=== PATIENT | male | born 1965 | race Caucasian/White ===

== ENCOUNTER 2016-12-02 06:32 | Observation (INO) ==
[2016-12-02 07:07] LABS: MANUAL DIFF NEEDED? NO
[2016-12-02 07:11] LABS: BASO% 0.2 % (0.0-0.8); EOS# 0.47 X1000 (0.0-0.7); EOS% 4.2 % (0.0-10.0); HEMOGLOBIN 15.8 g/dL (14.0-18.0); IMM GRAN# 0.03 X1000 (0.0-0.04); IMM GRAN% 0.3 % (0.0-0.5); LYMPH# 2.77 X1000 (1.2-3.4); LYMPH% 24.9 % (20.5-51.1); MCH 31.9 PG (27-31); MCHC 35.1 g/dL (33-37); MCV 90.9 FL (81-99); MONO# 0.87 X1000 (0.11-0.59); MONO% 7.8 % (1.7-9.3); NEUT% 62.6 % (42.2-75.2); PLT 138 X1000 (130-400); RBC 4.95 XMIL (4.7-6.1)
--- NOTE | 2016-12-02 07:22 | Diag Imaging Result Doc PS360 ---
EXAM: CHEST-2 VIEWS HISTORY: CP TECHNIQUE: COMPARISON: None. FINDINGS: The lungs are well expanded. The heart is not enlarged. The vessels are not distended. There are no infiltrates. No pleural effusions. Mild scoliosis. I believe there is a small granuloma in the right apex. IMPRESSION: No acute abnormality. Electronically signed by Freedom Dudley 12/02/2016 7:20 AM
[2016-12-02 07:26] LABS: INR 0.96; PROTIME 10.1 Seconds (9.2-11.7); PTT 21.1 Seconds (22.0-36.0)
--- NOTE | 2016-12-02 07:46 | PROVIDER DOCUMENTATION ---
HPI-Chest Pain - General Chief Complaint: Chest Pain Stated Complaint: cp Time Seen by Provider: 12/02/16 06:46 Source: patient Allergies/Adverse Reactions: Patient Allergies Allergy/AdvReac Type Severity Reaction Status Date / Time Penicillins Allergy Unknown Verified 12/02/16 07:00 prochlorperazine Allergy Unknown Verified 12/02/16 07:00 [From Compazine] Home Medications: Home Medication List Medication Instructions Recorded Confirmed Last Taken Type Aripiprazole [Abilify] 2 mg PO DAILY 12/02/16 12/02/16 12/01/16 History Aspirin [Aspir-Low] 81 mg PO DAILY 12/02/16 12/02/16 12/01/16 History Bupropion HCl [Wellbutrin Sr] 200 mg PO BID 12/02/16 12/02/16 12/01/16 History Diazepam 2 mg PO BID 12/02/16 12/02/16 12/01/16 History Ezetimibe [Zetia] 10 mg PO QHS 12/02/16 12/02/16 12/01/16 History Gabapentin 600 mg PO QHS 12/02/16 12/02/16 12/01/16 History Lisinopril 10 mg PO DAILY 12/02/16 12/02/16 12/01/16 History Melatonin/Pyridoxine HCl (B6) 1 each PO QHS 12/02/16 12/02/16 12/01/16 History [Melatonin 5 mg Tablet] Metoprolol [Lopressor] 50 mg PO DAILY 12/02/16 12/02/16 12/01/16 History ROSUVAstatin [Crestor] 20 mg PO QHS 12/02/16 12/02/16 12/01/16 History Risperidone 1 mg PO QHS 12/02/16 12/02/16 12/01/16 History - History of Present Illness-CP Nature of Presenting Problem: Reports woke up with L anterior chest pain at 6AM this morning. The pain radiated to L jaw area. Boutte SOB and chest tightness. Pt took 4 baby ASA at home and called 911, and then he was provided Nitro by EMS. Pt reports his pain last about 20 min and eased off. H/o cardiac stent X2 back to 10 years ago due to Cocaine abuse. No cocaine abuse since 7 years ago. Pt had a normal stress test X [address] Robles. Location: reports: other (See above) Chest Pain Radiation: reports: jaw Quality of Pain: reports: aching, pressure Severity in ED: moderate Onset/Duration: 1-3 hours ago Timing: improving, gone now Context/Activities at Onset: reports: none Modifying Factors: improves with: other medication Associated Symptoms: reports: shortness of breath. denies: abdominal pain, diaphoresis, dizziness, fatigue, fever/chills, headache, heartburn, nausea, vomiting, weakness Nitro Today/Relief: provided by EMS Aspirin Treatment Today: provided at home Prior Chest Pain/Cardiac Workup: reports: cardiac cath Similar Symptoms Previously?: No Recently Seen Here or By Another Healthcare Provider: No Review of Systems - Adult - REVIEW OF SYSTEMS - ADULT Constitutional: reports: no symptoms reported Eyes: reports: no symptoms reported Ears, Nose, Mouth & Throat: reports: no symptoms reported Cardiovascular: reports: see HPI, chest pain Respiratory: reports: no symptoms reported, shortness of breath. denies: chronic cough, cough, pleurisy, wheezing Gastrointestinal: reports: no symptoms reported Genitourinary: reports: no symptoms reported Musculoskeletal: reports: no symptoms reported Integumentary: reports: no symptoms reported Neurological: reports: no symptoms reported Psychiatric: reports: no symptoms reported Endocrine: reports: no symptoms reported Hematologic/Lymphatic: reports: no symptoms reported Allergic/Immunologic: reports: no symptoms reported All Other Systems: Reviewed and Negative Past History - Adult - PAST MEDICAL HISTORY-ADULT Review of Records: reports: Old Records Reviewed, Nursing Assessment Review, Medications Reviewed Physical Exam-General - PHYSICAL EXAM-ADULT Initial Vital Signs Reviewed: Yes - CONSTITUTIONAL General Appearance: appears well, alert, no apparent distress - EYES Eyes: PERRL/EOMI, pink conjunctivae - HEAD, EARS, NOSE, MOUTH & THROAT HENMT: normocephalic/atraumatic, moist mucous membranes, normal ENT inspection, TMs normal, pharynx normal - NECK Neck: non-tender, full range of motion, supple - RESPIRATORY Respiratory: chest non-tender, lungs clear, normal breath sounds, no pleuratic chest pain, no respiratory distress - CARDIOVASCULAR Cardiovascular: normal peripheral pulses, regular rate, rhythm, no edema, no gallop, no JVD, no murmur - GASTROINTESTINAL (ABDOMEN) Abdominal Exam: normal bowel sounds, non tender, soft, no organomegaly, no pulsatile mass, abdominal bruit. negative: guarding, rigid, rebound, tenderness - MUSCULOSKELETAL Back Exam: normal inspection, no CVA tenderness, no vertebral tenderness Extremity: normal range of motion, non-tender, normal gait - SKIN Integumentary: normal color, normal turgor, warm/dry - NEUROLOGIC Neurologic: no motor/sensory deficits - PSYCHIATRIC Psych/Mental Status: normal mood/affect, normal thought content, normal thought process, oriented x 3 Progress - PLAN OF CARE/RESULTS Progress/Plan/Lab Results: Vital Signs - 8 hr 12/02/16 06:56 12/02/16 08:12 12/02/16 08:15 Temperature Pulse Rate 69 64 64 Respiratory Rate 15 23 20 Blood Pressure 122/77 115/70 115/70 O2 Sat by Pulse Oximetry 95 94 L 95 12/02/16 08:48 12/02/16 09:08 12/02/16 09:34 Temperature 97.8 F Pulse Rate 63 71 Respiratory Rate 15 22 Blood Pressure 118/78 121/80 O2 Sat by Pulse Oximetry 96 96 12/02/16 10:26 12/02/16 11:43 Temperature Pulse Rate 65 65 Respiratory Rate 19 17 Blood Pressure 104/73 125/88 O2 Sat by Pulse Oximetry 96 93 L Laboratory Results - last 24 hr 12/02/16 12/02/16 12/02/16 06:45 06:45 06:45 WBC 11.13 H RBC 4.95 Hgb 15.8 Hct 45.0 MCV 90.9 MCH 31.9 H MCHC 35.1 RDW Std Deviation 12.9 Plt Count 138 MPV 11.0 H Immature Gran % (Auto) 0.3 Neut % (Auto) 62.6 Lymph % (Auto) 24.9 Dixie % (Auto) 7.8 Eos % (Auto) 4.2 Baso % (Auto) 0.2 Immature Gran # (Auto) 0.03 Neut # (Auto) 6.97 H Lymph # (Auto) 2.77 Dixie # (Auto) 0.87 H Eos # (Auto) 0.47 Baso # (Auto) 0.02 PT 10.1 INR 0.96 PTT (Actin FS) 21.1 L D-Dimer 0.35 Sodium Potassium Chloride Carbon Dioxide Anion Gap BUN Creatinine Estimated GFR/1.73 m2 BUN/Creatinine Ratio Glucose Calculated Osmolality Calcium Magnesium Total Bilirubin AST ALT Alkaline Phosphatase Creatine Kinase Troponin T Wnk-N-Xcanbnkztni Pept Total Protein Albumin Globulin Albumin/Globulin Ratio 12/02/16 12/02/16 12/02/16 07:32 07:32 07:32 WBC RBC Hgb Hct MCV MCH MCHC RDW Std Deviation Plt Count MPV Immature Gran % (Auto) Neut % (Auto) Lymph % (Auto) Dixie % (Auto) Eos % (Auto) Baso % (Auto) Immature Gran # (Auto) Neut # (Auto) Lymph # (Auto) Dixie # (Auto) Eos # (Auto) Baso # (Auto) PT INR PTT (Actin FS) D-Dimer Sodium 139 Potassium 4.3 Chloride 102 Carbon Dioxide 24 L Anion Gap 13 BUN 15 Creatinine 0.9 Estimated GFR/1.73 m2 > 60 BUN/Creatinine Ratio 17 Glucose 127 H Calculated Osmolality 280 Calcium 10.3 H Magnesium 1.9 Total Bilirubin 0.41 AST 16 ALT 22 Alkaline Phosphatase 76 Creatine Kinase 87 Troponin T < 0.010 Xkg-R-Suljmaqsdyx Pept 6 Total Protein 7.4 Albumin 4.2 Globulin 3.2 Albumin/Globulin Ratio 1.3 12/02/16 12/02/16 12/02/16 09:25 09:25 11:44 WBC RBC Hgb Hct MCV MCH MCHC RDW Std Deviation Plt Count MPV Immature Gran % (Auto) Neut % (Auto) Lymph % (Auto) Dixie % (Auto) Eos % (Auto) Baso % (Auto) Immature Gran # (Auto) Neut # (Auto) Lymph # (Auto) Dixie # (Auto) Eos # (Auto) Baso # (Auto) PT INR PTT (Actin FS) D-Dimer Sodium Potassium Chloride Carbon Dioxide Anion Gap BUN Creatinine Estimated GFR/1.73 m2 BUN/Creatinine Ratio Glucose Calculated Osmolality Calcium Magnesium Total Bilirubin AST ALT Alkaline Phosphatase Creatine Kinase 100 172 Troponin T 0.014 Jsx-Y-Mmeggsgbjem Pept Total Protein Albumin Globulin Albumin/Globulin Ratio 12/02/16 11:44 WBC RBC Hgb Hct MCV MCH MCHC RDW Std Deviation Plt Count MPV Immature Gran % (Auto) Neut % (Auto) Lymph % (Auto) Dixie % (Auto) Eos % (Auto) Baso % (Auto) Immature Gran # (Auto) Neut # (Auto) Lymph # (Auto) Dixie # (Auto) Eos # (Auto) Baso # (Auto) PT INR PTT (Actin FS) D-Dimer Sodium Potassium Chloride Carbon Dioxide Anion Gap BUN Creatinine Estimated GFR/1.73 m2 BUN/Creatinine Ratio Glucose Calculated Osmolality Calcium Magnesium Total Bilirubin AST ALT Alkaline Phosphatase Creatine Kinase Troponin T 0.054 D Tnm-A-Iokvfvzicsi Pept Total Protein Albumin Globulin Albumin/Globulin Ratio Orders Category Date Time Status Cardiac Monitoring DIRECTED Care 12/02/16 06:34 Active Saline Loc NOW Care 12/02/16 06:34 Active CHEST-2 VIEWS [RAD] Stat Exams 12/02/16 06:34 Completed CBC WITH ELECTRONIC DIFF [HEME] Stat Lab 12/02/16 06:45 Completed CK PROFILE [SP CHEM] Stat Lab 12/02/16 07:32 Completed CK PROFILE [SP CHEM] Stat Lab 12/02/16 09:25 Completed CK PROFILE [SP CHEM] Stat Lab 12/02/16 11:44 Completed COMPREHENSIVE METABOLIC PANEL [CHEM] Stat Lab 12/02/16 07:32 Completed D-DIMER [CHEM] Stat Lab 12/02/16 06:45 Completed MAGNESIUM [CHEM] Stat Lab 12/02/16 07:32 Completed PRO B-NATRIURETIC PEPTIDE Stat Lab 12/02/16 07:32 Completed PROTIME WITH INR [COAG] Stat Lab 12/02/16 06:45 Completed PTT [COAG] Stat Lab 12/02/16 06:45 Completed TROPONIN T Stat Lab 12/02/16 07:32 Completed TROPONIN T Stat Lab 12/02/16 09:25 Completed TROPONIN T Stat Lab 12/02/16 11:44 Completed EKG [EKG] Stat Ther 12/02/16 06:34 Ordered Result Diagrams: 12/02/16 06:45 12/02/16 07:32 - REASSESSMENT Reassessment #1 Time Reassessed: 10:54 Status: improving (Pt reports that she has been pain free since ED arrival and he refused to be admitted and wants to go home. Will do the 3rd round Cardiac enzymes.) - EKG 1 EKG Interpretation (*Must complete 3 of following elements*): Normal Rate: 71 Rhythm: NSR [place]: normal QRS: normal AR Interval: normal ST Wave: normal - XRAY 1 XRAY Study: Chest Impression: Normal - CONSULTS/PCP/HOSPITALIST Notification #1 *Consult/PCP/Hospitalist*: Edis/hospitalist Time Discussed: 12:53 Consult Disposition: Will see in ED, Admit Departure - Departure Date of Disposition Decision: 12/02/16 Time of Disposition Decision: 12:52 DIAGNOSIS: Chest pain Disposition: ADMITTED INPATIENT 09 Certified Medical Emergency: Emergent Condition: Stable Referrals and Follow-Ups: None,PCP [Primary Care Provider] - - Critical Care Note This patient required my direct & personal management of CC.: No
[2016-12-02 08:25] LABS: AGAP 13; ALBUMIN 4.2 g/dL (3.5-5.0); ALKALINE PHOSPHATASE 76 U/L (32-122); BUN 15 mg/dL (8-22); CALCIUM 10.3 mg/dL (8.8-10.2); CHLORIDE 102 mmol/L (98-107); CK PROFILE 87 U/L (24-204); COSMO 280; GOT 16 U/L (10-34); GPT 22 U/L (10-44); MAGNESIUM 1.9 mg/dL (1.5-2.7); POTASSIUM 4.3 mmol/L (3.5-5.1); SODIUM 139 mmol/L (136-145); TCO2 24 mmol/L (25-35); TOTAL BILIRUBIN 0.41 mg/dL (0.20-1.00); TOTAL PROTEIN 7.4 g/dL (6.3-8.3)
[2016-12-02] MEDS ORDERED: ZOFRAN IV PRN ×2 (13:25→14:23)
--- NOTE | 2016-12-02 14:10 | HISTORY AND PHYSICAL ---
States that he was woke up this morning with pain. It was pressure. Radiating to both jaws. No radiation into his arm, but pretty intense discomfort and he would have components of sharper pain as well. Apparently he has a history of coronary artery disease and has had some stents placed by his report. Followed by Dr. Robles. He has a history of bipolar illness and subtotal thyroidectomy. He has had his tonsils taken out. He has had a right inguinal hernia repair. I see where had a myocardial perfusion scan in June at the time of chest pain. Negative exercise stress electrocardiogram. Left ventricular ejection fraction 72%. In the myocardial imaging, revealed no evidence of ischemia. SOCIAL HISTORY: He is still smoking. He does not drink much alcohol. Used to use cocaine, but it has been 7 years ago by his report. FAMILY HISTORY: He did not volunteer any pertinent information. REVIEW OF SYSTEMS: He does not report any weight gain or loss. No fever or chills.HEENT: Unremarkable. Respiratory: No increased work of breathing or dyspnea. Cardiovascular: As noted above. Some chest pressure. Has not had this before. Did get relief with nitroglycerin. The pain did radiate into both jaws and pretty intense pain in the jaws. Gastrointestinal: Does not report any symptoms. Genitourinary: Does not report any symptoms. Musculoskeletal/Neurologic: No focal complaints. He does have a history of bipolar. His chest x-ray showed no acute abnormality. CPK was 87. Troponin was less than 0.01 on first set. Troponin came up to 0.054 on second set. Electrocardiogram unremarkable. PHYSICAL EXAMINATION: GENERAL: Well developed, well nourished white male, pleasant. VITAL SIGNS: Temperature 97.8 degrees, pulse 71, respirations 20, blood pressure 134/89. HEENT: Pupils were equal. CVP less than 6 cm. LUNGS: Clear in all lung ferris. CARDIOVASCULAR: Regular rhythm and rate without murmur or S3. ABDOMEN: Soft. SKIN: Warm and dry. No chest wall tenderness reproduced. No pedal edema. LAB: Reviewed his lab work. White count 11,130, hematocrit 45, platelet count 138,000. Sodium 139, potassium 4.3, chloride 102, bicarb 24, BUN 15, creatinine 0.9, blood sugar 127. Osmolality was 280, magnesium 1.9. ASSESSMENT AND PLAN: 1. Atypical chest pain. Concerned about a small bump in the troponin. EKG unremarkable, but component of it very suggestive of unstable angina. Probably need to put him on some Lovenox. We will of course give him an aspirin and start some low-dose beta margi. Continue his other medications. 2. History of hypercholesterolemia. Continue Crestor. Check lipid profile in the morning. 3. Hypertension. Continue present medication lisinopril. 4. History of bipolar. He is on Risperidone 1 mg p.o. at bedtime. He is already on Lopressor 50 mg p.o. daily. He is on Wellbutrin 200 mg b.i.d., diazepam 2 mg b.i.d., and Abilify 2 mg daily. cc: Xavier Curry MD
[2016-12-02] MEDS ORDERED: DUONEB (A & A) INH PRN ×2 (14:23→15:49)
[2016-12-02] MEDS ORDERED: DUONEB (A & A) INH SCH (15:30)
[2016-12-02] MEDS: NICODERM PATCH TD SCH (16:33)
[2016-12-02] MEDS: LOVENOX SUBQ SCH (16:34)
[2016-12-02] MEDS ORDERED: ZETIA PO SCH (21:00)
[2016-12-02] MEDS ORDERED: MELATONIN PO SCH (21:00)
[2016-12-02] MEDS ORDERED: NEURONTIN PO SCH (21:00)
[2016-12-02] MEDS ORDERED: RISPERDAL PO SCH (21:00)
[2016-12-02] MEDS ORDERED: CRESTOR PO SCH (21:00)
[2016-12-02] MEDS: WELLBUTRIN SR PO SCH (21:42)
[2016-12-02] MEDS: VALIUM PO SCH (21:43)
[2016-12-02 22:39] LABS: URINE CULTURE NEEDED? NO; URINE MICRO REVIEW NEEDED? NO; URINE SOURCE CLEAN CATCH
[2016-12-02 22:44] LABS: BILIRUBIN URINE NEGATIVE (NEGATIVE); BLOOD URINE NEGATIVE (NEGATIVE); COLOR YELLOW; GLUCOSE URINE NEGATIVE (NEGATIVE); LEUKOCYTES URINE NEGATIVE (NEGATIVE); NITRITE URINE NEGATIVE (NEGATIVE); PH URINE 6.5; PROTEIN URINE NEGATIVE (NEGATIVE); TURBIDITY URINE CLEAR (CLEAR); UROBILINOGEN URINE NORMAL (NORMAL)
[2016-12-02 22:45] LABS: UR EPITHELIAL CELLS <10 /HPF (<10); URINE BACTERIA NEGATIVE /HPF; URINE RBC <10 /HPF (<10); URINE WBC <10 /HPF (<10)
[2016-12-02 23:13] LABS: UR AMPHETAMINES QUAL NONE DETECTED (NONE DETECT); UR BARBITUATES QUAL NONE DETECTED (NONE DETECT); UR BENZODIAZEPIN QUAL PRESUMPTIVE POSITIVE (NONE DETECT); UR CANNABINOIDS QUAL PRESUMPTIVE POSITIVE (NONE DETECT); UR COCAINE QUAL NONE DETECTED (NONE DETECT); UR METHADONE QUAL NONE DETECTED (NONE DETECT); UR OPIATES QUAL NONE DETECTED (NONE DETECT); UR OXYCODONE QUAL NONE DETECTED (NONE DETECT); UR PCP QUAL NONE DETECTED (NONE DETECT)
[2016-12-03] MEDS: LOVENOX SUBQ SCH (02:05)
[2016-12-03 06:30] LABS: HEMOGLOBIN 15.5 g/dL (14.0-18.0); MCH 32.4 PG (27-31); MCHC 35.2 g/dL (33-37); MCV 92.1 FL (81-99); MPV 9.5 FL (7.4-10.4); RBC 4.78 XMIL (4.7-6.1)
--- NOTE | 2016-12-03 06:38 | EKG Report ---
Test Performed on : 12/03/2016 05:50:38 AM Test Reason : Non ST AR Blood Pressure : / mmHG Vent. Rate : 074 BPM Atrial Rate : 074 BPM P-R Int : 144 ms QRS Dur : 100 ms QT Int : 412 ms P-R-T Axes : 050 052 066 degrees QTc Int : 457 ms Normal sinus rhythm. Nonspecific ST abnormality Abnormal ECG When compared with ECG of 02-DEC-2016 06:37, (Unconfirmed) No significant change was found Confirmed by Jessy Thomason MD ([id number]) on 12/04/2016 12:26:32 PM
[2016-12-03 07:03] LABS: AGAP 14; BUN 18 mg/dL (8-22); CALCIUM 9.1 mg/dL (8.8-10.2); CHLORIDE 101 mmol/L (98-107); COSMO 279; HDL 30 mg/dL (35-55); LDL 88 mg/dL; SODIUM 138 mmol/L (136-145); TCO2 23 mmol/L (25-35); TRIGLYCERIDES 233 mg/dL (39-160); VLDL 47 mg/dL
--- NOTE | 2016-12-03 07:09 | EKG Report ---
Test Performed on : 12/02/2016 06:37:06 AM Test Reason : Chest Pain Blood Pressure : / mmHG Vent. Rate : 071 BPM Atrial Rate : 071 BPM P-R Int : 150 ms QRS Dur : 098 ms QT Int : 416 ms P-R-T Axes : 055 061 073 degrees QTc Int : 452 ms Normal sinus rhythm. Normal ECG No previous ECGs available Unconfirmed Result
[2016-12-03 07:44] LABS: CK INDEX 9.5 (0.0-2.5); CK-MB 53.7 ng/mL (0.0-5.0)
[2016-12-03] MEDS ORDERED: HEPARIN 1000 UNITS/NS 2,000 UNIT/1,000 ML IV.SOLN ONE (08:05)
[2016-12-03] MEDS ORDERED: NITROGLYCERIN ONE (08:21)
[2016-12-03] MEDS ORDERED: ASPIRIN EC PO SCH (09:00)
[2016-12-03] MEDS ORDERED: ABILIFY PO SCH (09:00)
[2016-12-03] MEDS ORDERED: LOPRESSOR PO SCH (09:00)
[2016-12-03] MEDS ORDERED: PRINIVIL PO SCH (09:00)
[2016-12-03] MEDS ORDERED: CRESTOR PO SCH (10:56)
--- NOTE | 2016-12-03 10:59 | CONSULTATION ---
DATE OF CONSULTATION: 12/02/2016 REQUESTING PHYSICIAN: Hospitalist Service REASON FOR CONSULTATION: Chest pain, coronary heart disease. HISTORY OF PRESENT ILLNESS: Mr. Greenberg is a 51-year-old male who presented to the emergency room this morning at about 6:30 with complaints of waking up from his sleep with significant chest pain, very intense, radiated to the jaw. He waited about 15 to 20 minutes and after that, he decided to call for help. He was brought to the emergency room department. They did an initial EKG that showed no acute ischemic changes. That was done at 6:37 in the morning. Subsequent EKG done at 3:57 p.m. shows no acute changes. Troponin levels initially were negative, then subsequently 0.014, 0.054 and then 0.141 at 2:29 p.m. His CK was initially 87, subsequently 100, 172, and the one at 2:29 p.m. is 337. This is consistent with acute coronary syndrome. This is a djp-[id number]-vxxcnqmyg myocardial infarction. The patient at the time of my visit, which is 4:15 p.m., is chest pain free. The patient says that he has never experienced any chest pain like this. PAST MEDICAL HISTORY: Positive for severe coronary heart disease. Initially his disease was found on stress testing. Reportedly in 09/2006, he underwent a stent to the circumflex and subsequently in 09/2007, he underwent a bare metal stent to proximal right coronary artery which is chronically occluded after an acute marginal branch which is large, per Dr. Guevara's report. He also did angioplasty without a stent to the ostium and proximal portion of the diagonal branch of the LAD. The patient at that time was not having chest pain. His stress test was abnormal. The last stress test taken by this patient was in 06/2015 that showed a low grade, small size fixed defect in the basal inferior wall. Ejection fraction was normal at that time. Echocardiogram at that time was also unremarkable. The patient has history of hypertension, hyperlipidemia, bipolar disorder. He also has history of sleep apnea syndrome. PAST SURGICAL HISTORY: He has had thyroid surgery, hernia repair, tonsillectomy. SOCIAL HISTORY: He is single. 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 He has no children. He smokes 3/4 pack of cigarettes a day for a long time. FAMILY HISTORY: His father is alive at age 71 and has severe coronary heart disease and previous bypass. He has one sister who is in good health. Mother is . HOME MEDICATIONS: At the time of this admission are listed as aspirin 81 mg daily, Crestor 20 mg at bedtime, Zetia 10 mg at bedtime, lisinopril 10 mg daily, diazepam 2 mg twice a day, risperidone 1 mg at bedtime, Lopressor 50 mg daily, gabapentin 600 mg at bedtime, bupropion 200 twice a day, aripiprazole (Abilify) 2 mg daily, melatonin 5 mg at bedtime. ALLERGIES: He is allergic to penicillin and Compazine. REVIEW OF SYSTEMS: He is active. He does not exercise on a regular basis; however, he is always on the run doing things for his different properties. He has no exertional angina, no palpitations, no edema, no claudication. No active respiratory symptoms. No abdominal complaints. No active additional metabolic issues, diabetes or thyroid disorder. No active musculoskeletal complaints. No skin disorder. No neurological issues. No hearing or visual problems. There is a remote history of drug abuse in the past. Reportedly he has not used drugs in many years. PHYSICAL EXAMINATION: Blood pressure is 134/89, temperature 97.8, pulse 64, respirations 20. He is awake, alert and oriented, in no distress. HEENT is normal. Throat is normal. No masses in the neck. No bruits. No thyromegaly. Chest is clear to auscultation and percussion. Heart sounds are regular and rhythmic. No gallop or murmur. His abdomen is nontender, soft. No masses. No hepatomegaly. Extremities show good pulses, no peripheral edema. Neurologic: Follows commands, moves all 4 extremities. Skin shows no rash. DIAGNOSTIC DATA: A 12-lead EKG is normal. Chest x-ray is normal. His additional blood work shows white count 11,130, hemoglobin 15.8. PT and PTT are normal. D-dimer is normal. BUN and creatinine are normal. IMPRESSION: 1. The patient is presenting with sudden onset of chest pain waking him up from his sleep. He does have elevation of troponin and CPK level suggesting that we are dealing with a non-ST- elevation myocardial infarction. 2. History of severe coronary artery disease. Previous diagnosis of total occlusion of right coronary artery and severe stenosis of the diagonal as well as circumflex with previous intervention to all those vessels. 3. History of hypertension. 4. History of hyperlipidemia. 5. History of bipolar disorder. RECOMMENDATIONS: At this point in time, I agree with your management including enoxaparin, aspirin, beta blockers, nicotine patch and statins. We will arrange for a coronary arteriogram. The benefits, risks and complications are discussed with the patient. We will trend his enzymes. Further advice will be forthcoming. cc: Sam Alfred MD
[2016-12-03] MEDS ORDERED: VERSED ONE ×2 (11:01→11:30)
[2016-12-03] MEDS ORDERED: DEMEROL ONE (11:02)
[2016-12-03] MEDS ORDERED: NS 1,000 ML ONE (11:02)
[2016-12-03] MEDS ORDERED: ANESTHESIA PB SET 88 IN 5742 ONE (11:02)
[2016-12-03] MEDS ORDERED: CLAVE TWINSITE 32 IN 11959 ONE (11:05)
[2016-12-03 12:22] VITALS: BP 136/82
[2016-12-03] MEDS ORDERED: NS 1,000 ML IV SCH (13:00)
--- NOTE | 2016-12-03 13:36 | EKG Report ---
Test Performed on : 12/03/2016 1:17:12 PM Test Reason : post cath Blood Pressure : / mmHG Vent. Rate : 072 BPM Atrial Rate : 072 BPM P-R Int : 160 ms QRS Dur : 102 ms QT Int : 422 ms P-R-T Axes : 068 057 070 degrees QTc Int : 462 ms Normal sinus rhythm. Normal ECG When compared with ECG of 03-DEC-2016 05:50, (Unconfirmed) No significant change was found Confirmed by Jessy Thomason MD ([id number]) on 12/04/2016 12:27:22 PM
[2016-12-03] MEDS: VALIUM PO SCH (13:58)
[2016-12-03] MEDS: NICODERM PATCH TD SCH (13:59)
[2016-12-03] MEDS: WELLBUTRIN SR PO SCH (14:03)
--- NOTE | 2016-12-03 14:55 | CARDIAC CATH REPORT ---
DATE: 12/03/2016 PROCEDURES PERFORMED: 1. Left heart catheterization. 2. Selective coronary arteriography. 3. Left ventriculography. 4. Opacification of right femoral artery with deployment of 6-Canadian Angio-Seal device. HISTORY OF PRESENT ILLNESS: Mr. Greenberg is a 51-year-old male smoker, history of hypertension, with a history of previous stent to the circumflex and a previous intervention to a diagonal branch of the LAD and the right coronary artery, who presented to the emergency room department on 12/02/2016 after waking up from his sleep with significant chest discomfort. The patient's initial EKG was unremarkable. Initial cardiac enzymes were negative; however, subsequently he developed a rise in his CPKs and troponins consistent with a non-Q-wave myocardial infarction. EKG persisted unchanged during the early hours, and his chest pain subsided. Because of the clear indication that he had suffered a non-Q-wave myocardial infarction and his history of severe coronary artery disease, we recommended a left heart catheterization to define his coronary anatomy and pursue revascularization as mandated by the anatomy. Benefits, risks and complications were discussed with him in detail. He understood and requested to proceed. DESCRIPTION OF PROCEDURE: The patient came into the cardiac label remover. He received 3 doses of Versed 1 mg and 2 doses of Demerol 25 mg for sedation. Right groin was prepped and draped in a sterile fashion and anesthetized with lidocaine 1%. A 6-Canadian sheath was inserted in the right femoral artery by following the modified Seldinger technique. Using a 6-Canadian left Francisco 4 and right Francisco 4, the left and right coronary arteries were opacified. Using the right Francisco catheter, the aortic valve was negotiated. Left ventricular pressure was determined. Left ventriculogram was performed in 60 degree DOMINICAN projection by hand injection. Thereafter, we switched over to a 6-Canadian pigtail catheter. The aortic valve was negotiated again, and left ventriculogram was performed in the 30 degree CERRATO projection by injecting 38 mL of Omnipaque at 11 mL per second. Good opacification of left ventricular chamber was accomplished. At the end of the procedure, the pigtail catheter was removed. The sheath was flushed. Right femoral artery was opacified, and Angio-Seal device was deployed successfully. The patient tolerated the procedure well without any obvious complication. SUMMARY OF HEMODYNAMIC FINDINGS: Central aortic pressure was 124/74, left ventricular pressure 120/5, post LV gram 131/5. Final central aortic pressure 120/67. SUMMARY OF ANGIOGRAPHIC FINDINGS: 1. Left main coronary artery: This vessel appears to be anatomically normal, free of any obstruction, arising from the usual left coronary sinus of Valsalva, divides into LAD and circumflex. 2. Left descending coronary artery: This vessel appears to be anatomically normal in its proximal segment. It gives rise to a prominent diagonal branch which shows a relatively long 60% to 70% stenosis before it branches out into 2 smaller terminal branches. There is a more proximal tiny diagonal branch. The LAD thereafter shows an intramyocardial bridge that spans a good portion of the mid LAD. The apical LAD is smaller, and the caliber appears to be 1.6 mm. It reaches the apex of the left ventricle. 3. Circumflex coronary artery: The circumflex coronary artery is a nondominant vessel. Proximally it gives rise to a sinus swati branch, and after giving rise to a lateral branch which appears to be patent, the circumflex becomes completely occluded. There is a segment that has been previously stented that is completely occluded. Beyond the stent, there is a terminal marginal system that is visualized consisting of 2 branches. The most proximal one is a bifurcating vessel with a caliber that may be about 1.5 mm. The most terminal branch is a little bit smaller, is visualized through ipsicollaterals. 4. Right coronary artery: The right coronary artery is a dominant vessel. Proximally it shows a stent that was deployed there and is patent. The right coronary artery gives rise to a conus branch, right atrial branch and gives rise to an acute marginal branch before becoming completely occluded. This vessel had been stented a few years ago, and no significant restenosis appears to be present. The right coronary artery beyond that is completely occluded. There is an ipsicollateral that feeds a smaller acute marginal branch that appears to arise from the mid segment of this right coronary artery. The terminal branches, which are the posterior descending and the posterolateral branch, are well collateralized through mature collaterals coming from the left system. LEFT VENTRICULOGRAM: Left ventriculogram in the 30 degree CERRATO projection and 60 degree DOMINICAN projection reveal that the left ventricular chamber is not dilated. There is actually very good contractility except for a focal area of the mid inferior wall which is significantly impaired. No mitral regurgitation was noted. The right femoral artery is patent, and Angio-Seal device was deployed successfully. CONCLUSIONS: 1. Severe coronary artery disease. There is complete occlusion of the proximal to mid circumflex. There is complete occlusion of the proximal to mid right coronary artery. There is a significant stenosis of the major diagonal branch of the LAD. There is also an intramyocardial bridge involving the mid LAD. 2. Well preserved left ventricular systolic function. Ejection fraction is 55% to 60%. 3. Normal LVEDP. 4. No aortic stenosis. No mitral regurgitation. 5. Unremarkable right femoral artery with deployment of 6-Canadian Angio-Seal device. RECOMMENDATIONS: We will treat this patient medically for the time being. We will obtain second opinion consultation from sales floor associate in [place] and also from the Cardiovascular Surgical Team. Further advice will be forthcoming. cc: Sam Alfred MD MTDD
--- NOTE | 2016-12-03 18:27 | DISCHARGE SUMMARY ---
ADMISSION DATE: 12/02/2016 DISCHARGE DATE: 12/03/2016 HISTORY AND HOSPITAL COURSE: The patient was admitted on 12/02/2016 yesterday for chest pain, squeezing, pressure-type pain with radiation to his jaw. Underwent heart catheterization this morning per Dr. Alfred. Result showed severe coronary artery disease. There is complete occlusion of the proximal to mid circumflex. There is complete occlusion of the proximal to mid right coronary artery. There is significant stenosis of the major diagonal branch of the LAD. There is also intramyocardial bridging involving the mid LAD. Well preserved left ventricular systolic function. Ejection fraction 55% to 60%. Normal LVEDP no aortic stenosis. He will be transferred to [place]. He will continue his current medications. He has a history of severe coronary artery disease, previously diagnosed with total occlusion of the right coronary artery and severe stenosis of the diagonal as well as circumflex and previous intervention on these vessels. DISCHARGE MEDICATIONS: We did have him on Lovenox and continued his other medications. cc: Xavier Curry MD
--- NOTE | 2016-12-04 08:06 | EKG Report ---
Test Performed on : 12/02/2016 3:57:08 PM Test Reason : ROUTINE Blood Pressure : / mmHG Vent. Rate : 062 BPM Atrial Rate : 062 BPM P-R Int : 156 ms QRS Dur : 102 ms QT Int : 426 ms P-R-T Axes : 046 055 055 degrees QTc Int : 432 ms Normal sinus rhythm. Normal ECG No previous ECGs available Unconfirmed Result
== END 2016-12-03 14:52 | disposition short-term general hospital (02) ==
LOC: 3N 06:32 → ED 06:32 → 3S 12-03 11:26
PROVIDERS: ATTEND Emergency Medicine

== ENCOUNTER 2018-11-21 20:14 | Observation (INO) ==
[2018-11-21] MEDS ORDERED: ASPIRIN PR ONE (20:29)
[2018-11-21] MEDS ORDERED: ASPIRIN PO ONE (20:29)
[2018-11-21 21:23] LABS: INR 0.91
[2018-11-21] MEDS ORDERED: NITROGLYCERIN TOP ONE (21:23)
--- NOTE | 2018-11-21 21:23 | Diag Imaging Result Doc PS360 ---
EXAM: CHEST-2 VIEWS 11/21/2018 HISTORY: chest pain TECHNIQUE: PA and lateral chest COMMENT: There are sternotomy wires. The heart size and pulmonary vascularity are within normal limits. There is apparent COPD. There is what appears to be a granuloma in the right upper lobe which has not changed since 12/02/2016. IMPRESSION: COPD. Electronically signed by Navjot Evans 11/21/2018 9:21 PM
[2018-11-21 21:26] LABS: BASO# 0.02 X1000 (0.0-0.2); BASO% 0.2 % (0.0-0.8); EOS# 0.15 X1000 (0.0-0.7); EOS% 1.8 % (0.0-10.0); HEMATOCRIT 40.9 % (42.0-52.0); HEMOGLOBIN 14.7 g/dL (14.0-18.0); LYMPH# 2.63 X1000 (1.2-3.4); LYMPH% 32.3 % (20.5-51.1); MCH 31.6 PG (27-31); MCHC 35.9 g/dL (33-37); MONO# 0.66 X1000 (0.11-0.59); MONO% 8.1 % (1.7-9.3); MPV 9.8 FL (7.4-10.4); NEUT# 4.67 X1000 (1.4-6.5); NEUT% 57.6 % (42.2-75.2); PLT 204 X1000 (130-400); RBC 4.65 XMIL (4.7-6.1); RDW 12.3 % (11.5-14.5); WBC 8.13 X1000 (4.8-10.8)
[2018-11-21 21:34] LABS: AGAP 12; ALB/GLOB RATIO 2.1; ALBUMIN 4.8 g/dL (3.5-5.0); ALKALINE PHOSPHATASE 67 U/L (32-122); BUN 16 mg/dL (8-22); CALCIUM 9.8 mg/dL (8.8-10.2); CHLORIDE 102 mmol/L (98-107); CK PROFILE 101 U/L (24-204); COSMO 281; CREATININE 1.2 mg/dL (0.7-1.2); ESTIMATED GFR > 60; GLUCOSE 134 mg/dL (70-104); GOT 20 U/L (10-34); GPT 26 U/L (10-44); POTASSIUM 4.1 mmol/L (3.5-5.1); SODIUM 139 mmol/L (136-145); TCO2 25 mmol/L (25-35); TOTAL BILIRUBIN 0.45 mg/dL (0.20-1.00); TOTAL PROTEIN 7.1 g/dL (6.3-8.3)
--- NOTE | 2018-11-21 23:16 | PROVIDER DOCUMENTATION ---
This chart was entered by Mervat Osuna Scribe, acting as scribe for Jonn Canada MD. HPI-Chest Pain - General Chief Complaint: Chest Pain Stated Complaint: CHEST PAIN/HISTORY OF HERAT PROBLEMS Time Seen by Provider: 11/21/18 20:44 Source: patient Allergies/Adverse Reactions: Patient Allergies Allergy/AdvReac Type Severity Reaction Status Date / Time fluoxetine [From Prozac] Allergy abd pain, Verified 03/29/17 11:44 migraine hernandez Penicillins Allergy Unknown Verified 03/29/17 11:44 prochlorperazine Allergy Unknown Verified 03/29/17 11:44 [From Compazine] Home Medications: Home Medication List Medication Instructions Recorded Confirmed Last Taken Type Aripiprazole [Abilify] 2 mg PO DAILY 12/02/16 03/29/17 12/01/16 History Aspirin [Aspir-Low] 325 mg PO DAILY 12/02/16 03/29/17 12/01/16 History Bupropion HCl [Wellbutrin Sr] 200 mg PO BID 12/02/16 03/29/17 12/01/16 History Diazepam 2 mg PO BID 12/02/16 03/29/17 12/01/16 History Ezetimibe [Zetia] 10 mg PO QHS 12/02/16 03/29/17 12/01/16 History Gabapentin 600 mg PO QHS 12/02/16 03/29/17 12/01/16 History Melatonin/Pyridoxine HCl (B6) 1 each PO QHS 12/02/16 03/29/17 12/01/16 History [Melatonin 5 mg Tablet] Metoprolol [Lopressor] 50 mg PO BID 12/02/16 03/29/17 12/01/16 History ROSUVAstatin [Crestor] 20 mg PO QHS 12/02/16 03/29/17 12/01/16 History Risperidone 1 mg PO QHS 12/02/16 03/29/17 12/01/16 History Lisinopril 20 mg PO DAILY 03/29/17 03/29/17 Unknown History - History of Present Illness-CP Nature of Presenting Problem: Pt is 53/M presenting to ED w/ C/P that started about 1.5 hr 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 Pt sts that it started in his L back and came around, his L arm became achy as well. Pt denies any SOB, Diaphoresis or nausea. 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 He sts that the pain when he had DE was more prominent than tonight and was also in neck. Pt does take daily 325mg. aspirin. Does not have nitro Location: reports: substernal Chest Pain Radiation: reports: arms, back Quality of Pain: reports: tightness Severity in ED: mild Onset/Duration: just prior to arrival Timing: gone now Context/Activities at Onset: reports: none Modifying Factors: improves with: nothing Associated Symptoms: reports: back pain Nitro Today/Relief: no nitro taken today Aspirin Treatment Today: 325 mg x 1 Prior Chest Pain/Cardiac Workup: reports: heart attack Similar Symptoms Previously?: Yes Recently Seen Here or By Another Healthcare Provider: No Review of Systems - Adult - REVIEW OF SYSTEMS - ADULT Constitutional: denies: chills, fever Eyes: reports: no symptoms reported Ears, Nose, Mouth & Throat: reports: no symptoms reported Cardiovascular: reports: chest pain. denies: edema, orthopnea Respiratory: reports: no symptoms reported Gastrointestinal: reports: no symptoms reported. denies: abdominal pain, nausea, vomiting Genitourinary: reports: no symptoms reported Musculoskeletal: reports: bone pain Integumentary: reports: no symptoms reported Neurological: reports: no symptoms reported. denies: dizziness/vertigo, headache/migraines Psychiatric: reports: no symptoms reported Endocrine: reports: no symptoms reported Hematologic/Lymphatic: reports: no symptoms reported Allergic/Immunologic: reports: no symptoms reported All Other Systems: Reviewed and Negative Past History - Adult - PAST MEDICAL HISTORY-ADULT Review of Records: reports: Old Records Reviewed, Nursing Assessment Review, Medications Reviewed, Social history reviewed & non-contributory. Major Childhood Illnesses: reports: denies history Cardiovascular: reports: cardiac disease, HTN, hyperlipidemia Gastrointestinal: reports: GERD Psychiatric: reports: bipolar - PRIOR SURGERIES/PROCEDURES Surgical/Procedure History: reports: CABG, cardiac stent, hernia repair, orthopedic (extremity), other (partial thyroid) - IMMUNIZATION STATUS Childhood Immunizations: See Nurse Assessment Flu Vaccine: See Nurse Assessment - SOCIAL HISTORY Smoking: quit greater than 1 year Substance Use: none/never, amphetamines Living Situation: family Physical Exam-General - PHYSICAL EXAM-ADULT Initial Vital Signs Reviewed: Yes - CONSTITUTIONAL General Appearance: appears well, alert, no apparent distress - EYES Eyes: PERRL/EOMI - HEAD, EARS, NOSE, MOUTH & THROAT HENMT: normocephalic/atraumatic, moist mucous membranes, normal ENT inspection, TMs normal, pharynx normal - NECK Neck: non-tender, full range of motion, supple, normal inspection - RESPIRATORY Respiratory: lungs clear - CARDIOVASCULAR Cardiovascular: regular rate, rhythm - GASTROINTESTINAL (ABDOMEN) Abdominal Exam: normal bowel sounds, non tender, soft - LYMPHATIC Lymphatic: no adenopathy - MUSCULOSKELETAL Back Exam: normal inspection, no CVA tenderness, no vertebral tenderness Extremity: normal range of motion, non-tender, normal gait, normal inspection - SKIN Integumentary: normal color, warm/dry - NEUROLOGIC Neurologic: grossly normal - PSYCHIATRIC Psych/Mental Status: normal mood/affect, normal thought content, normal thought process, oriented x 3 - HEART Score HEART Score: History: Highly Suspicious HEART Score: ECG: Normal HEART Score: Age: 45-65 Years HEART Score: Risk Factors for Atherosclerotic Disease: > or = 3 Risk Factors or History of Atherosclerotic Disease HEART Score: Troponin: < or = Normal Limit Total HEART Score:: 5 Progress - PLAN OF CARE/RESULTS Progress/Plan/Lab Results: Vital Signs - 8 hr 11/21/18 20:36 Temperature 98.6 F Pulse Rate 66 Respiratory Rate 19 Blood Pressure 124/83 O2 Sat by Pulse Oximetry 96 Laboratory Results - last 24 hr 11/21/18 11/21/18 11/21/18 20:55 20:55 20:55 WBC 8.13 RBC 4.65 L Hgb 14.7 Hct 40.9 L MCV 88.0 MCH 31.6 H MCHC 35.9 RDW Std Deviation 12.3 Plt Count 204 MPV 9.8 Immature Gran % (Auto) 0.0 Neut % (Auto) 57.6 Lymph % (Auto) 32.3 Gray % (Auto) 8.1 Eos % (Auto) 1.8 Baso % (Auto) 0.2 Immature Gran # (Auto) 0.00 Neut # (Auto) 4.67 Lymph # (Auto) 2.63 Gray # (Auto) 0.66 H Eos # (Auto) 0.15 Baso # (Auto) 0.02 PT INR PTT (Actin FS) Sodium 139 Potassium 4.1 Chloride 102 Carbon Dioxide 25 Anion Gap 12 BUN 16 Creatinine 1.2 Estimated GFR/1.73 m2 > 60 BUN/Creatinine Ratio 13 Glucose 134 H Calculated Osmolality 281 Calcium 9.8 Total Bilirubin 0.45 AST 20 ALT 26 Alkaline Phosphatase 67 Creatine Kinase 101 Troponin T Ipu-W-Wikehdvgrga Pept 37 Total Protein 7.1 Albumin 4.8 Globulin 2.3 Albumin/Globulin Ratio 2.1 11/21/18 11/21/18 20:55 20:55 WBC RBC Hgb Hct MCV MCH MCHC RDW Std Deviation Plt Count MPV Immature Gran % (Auto) Neut % (Auto) Lymph % (Auto) Gray % (Auto) Eos % (Auto) Baso % (Auto) Immature Gran # (Auto) Neut # (Auto) Lymph # (Auto) Gray # (Auto) Eos # (Auto) Baso # (Auto) PT 13.0 INR 0.91 PTT (Actin FS) 32.0 Sodium Potassium Chloride Carbon Dioxide Anion Gap BUN Creatinine Estimated GFR/1.73 m2 BUN/Creatinine Ratio Glucose Calculated Osmolality Calcium Total Bilirubin AST ALT Alkaline Phosphatase Creatine Kinase Troponin T < 0.010 Gun-U-Dfhwllmwjce Pept Total Protein Albumin Globulin Albumin/Globulin Ratio Orders Category Date Time Status Cardiac Monitoring DIRECTED Care 11/21/18 20:29 Active Oxygen Therapy- ED Nursing DIRECTED Care 11/21/18 20:29 Active Saline Loc NOW Care 11/21/18 20:29 Active CHEST-2 VIEWS [RAD] Stat Exams 11/21/18 20:29 Completed CBC WITH ELECTRONIC DIFF [HEME] Stat Lab 11/21/18 20:55 Completed CK PROFILE [SP CHEM] Stat Lab 11/21/18 20:55 Completed COMPREHENSIVE METABOLIC PANEL [CHEM] Stat Lab 11/21/18 20:55 Completed PRO B-NATRIURETIC PEPTIDE Stat Lab 11/21/18 20:55 Completed PROTIME WITH INR [COAG] Stat Lab 11/21/18 20:55 Completed PTT [COAG] Stat Lab 11/21/18 20:55 Completed TROPONIN T Stat Lab 11/21/18 20:55 Completed Aspirin Med 11/21/18 20:29 Discontinued 300 mg AR NOW ONE Aspirin Med 11/21/18 20:29 Discontinued 325 mg PO NOW ONE Nitroglycerin Med 11/21/18 21:23 Discontinued 1 inch TOP NOW ONE CP/SOB/Palp >45 yrs of Age Stat Oth 11/21/18 20:29 Ordered EKG [EKG] Stat Ther 11/21/18 20:19 Ordered Result Diagrams: 11/21/18 20:55 11/21/18 20:55 - REASSESSMENT Reassessment #1 Time Reassessed: 23:15 Status: improving (REMAINS PAIN FREE. WILL BE THOROUGH AND ADMIT OVERNIGHT FOR R/O) - EKG 1 Time of EKG reading by physician:: 20:23 EKG Read and Signed by:: Jonn Canada EKG Interpretation (*Must complete 3 of following elements*): Normal Rate: 70 Rhythm: sinus [place]: normal QRS: normal AR Interval: normal - XRAY 1 XRAY: Bilateral XRAY Study: Chest Comparison with other Films: no changes (COMMENT: There are sternotomy wires. The heart size and pulmonary vascularity are within normal limits. There is apparent COPD. There is what appears to be a granuloma in the right upper lobe which has not changed since 12/02/2016. IMPRESSION: COPD. Electronically signed by Navjot Evans 11/21/2018 9:21 PM) - CONSULTS/PCP/HOSPITALIST Notification #1 *Consult/PCP/Hospitalist*: Dr. Begum Time Discussed: 23:01 (Will admit ) Consult Disposition: Admit Departure - Departure Date of Disposition Decision: 11/21/18 Time of Disposition Decision: 23:13 DIAGNOSIS: Chest pain Disposition: ADMITTED INPATIENT 09 Certified Medical Emergency: Emergent Condition: Stable Referrals and Follow-Ups: Augustin Robles MD [Primary Care Provider] - - Critical Care Note This patient required my direct & personal management of CC.: No Attestation - Physician/ AUGUST Attestation Patient care was provided by Advanced Practice Provider:: No The physician spent face to face time with patient:: Yes Advanced Practice Provider documentation review:: Supervising physician onsite and consulted in the evaluation and care of this patient. The physician did have a face to face encounter with the patient. This chart was documented by the indicated scribe, (Mervat Osuna Scribe) and accurately reflects the services I performed and decisions made by me, Jonn Canada MD, as attested by the provider's signature.
[2018-11-22] MEDS ORDERED: TUMS PO ONE (00:11)
[2018-11-22] MEDS ORDERED: TYLENOL PO PRN (04:10)
[2018-11-22] MEDS ORDERED: ZOFRAN IV PRN (04:10)
--- NOTE | 2018-11-22 05:03 | HISTORY AND PHYSICAL ---
PRIMARY CARE PHYSICIAN: Dr. Reid. CHIEF COMPLAINT: Chest pain. HISTORY OF PRESENTING ILLNESS: A 53-year-old male with a history of coronary disease, hypertension, hyperlipidemia and bipolar disorder, who presented to emergency department with 1- day history of having squeezing chest pain. He states that it was radiating to his left upper extremity and he was concerned. The patient subsequently had come to the emergency department and he was evaluated and due to his presenting symptoms it was thought that we will place him for observation for further evaluation and management. At the time of my examination, he denied any headache, fever, chills, nausea, vomiting, diarrhea, hemoptysis, melena or weight changes, but complained of chest discomfort. PAST MEDICAL HISTORY: Includes coronary artery disease, hypertension, hyperlipidemia, bipolar disorder. PAST SURGICAL HISTORY: Coronary stent, coronary bypass, thyroid surgery, hernia repair, tonsillectomy. ALLERGIES: Penicillin, and Compazine and Prozac. CURRENT MEDICATIONS: Include Abilify 2 mg p.o. daily, aspirin 81 mg p.o. daily, Wellbutrin 200 mg p.o. b.i.d., diazepam 2 mg p.o. b.i.d., Zetia 10 mg p.o. at bedtime, lisinopril 20 mg p.o. at bedtime, metoprolol 50 mg p.o. b.i.d., risperidone 1 mg p.o. at bedtime, rosuvastatin 20 mg p.o. at bedtime, sertraline 50 mg p.o. at bedtime. SOCIAL HISTORY: He is a former smoker. No history of alcohol or drug use. FAMILY HISTORY: Positive for coronary artery disease in father. REVIEW OF SYSTEMS: Fourteen point review of system as listed in HPI. Other systems negative. PHYSICAL EXAMINATION: GENERAL: Cooperative, friendly male. He is resting more comfortably now. VITAL SIGNS: Temperature 98.6 degrees, pulse 66, respiration 19, blood pressure 124/83. HEENT: Atraumatic, normocephalic. Extraocular movements intact. PERRLA. NECK: Supple. CHEST: Clear to auscultation. CARDIOVASCULAR: Regular rate and rhythm. ABDOMEN: Soft, positive bowel sounds. EXTREMITIES: No edema. NEUROLOGIC: He is awake, alert, oriented x3. GENITOURINARY: No bladder distention. SKIN: Warm. LABORATORIES AND STUDIES: WBCs 8.13, hemoglobin 14.7, hematocrit 40.9, platelets 204,000. Sodium 139, potassium 4.1, chloride 102, CO2 is 25, BUN is 16, creatinine is 1.2, glucose is 137. Troponin is 0.010. Chest x-ray shows COPD. ASSESSMENT: A 53-year-old male with a history of coronary artery disease, hypertension, hyperlipidemia and bipolar disorder, who had presented to the emergency department with a 1-day history of having chest pain. We will place the patient for observation for further evaluation and management. 1. Chest pain. 2. Coronary artery disease. 3. Hypertension. 4. Hyperlipidemia. 5. Bipolar disorder. PLAN: 1. We will admit patient to medical floor with telemetry. 2. Continue with cardiac workup. Check EKG, serial cardiac enzymes. Have patient continue on aspirin. We will use sublingual nitroglycerin p.r.n. chest pain. 3. We will consult Cardiology. 4. Monitor blood pressure closely. 5. Restart other home medications. 6. Put patient on DVT prophylaxis with SCD. 7. We will continue to follow, and reassess and make further recommendation based on patient's clinical course. cc: Michael Begum MD
[2018-11-22] MEDS: WELLBUTRIN SR PO SCH ×2 (09:23→21:37)
[2018-11-22] MEDS: ASPIRIN PO SCH (09:23)
[2018-11-22] MEDS: PRINIVIL PO SCH (09:23)
[2018-11-22] MEDS: LOPRESSOR PO SCH ×2 (09:24→21:37)
[2018-11-22] MEDS: PRILOSEC PO SCH (09:24)
[2018-11-22] MEDS: VALIUM PO SCH ×2 (09:28→21:38)
[2018-11-22] MEDS ORDERED: NORCO-5 PO PRN (10:12)
--- NOTE | 2018-11-22 12:31 | PROGRESS NOTE ---
DATE: 11/22/2018 SUBJECTIVE: This morning Mr. Greenberg refers to be doing well. He denies any more chest pain. A niece was at the bedside at the time of the encounter. Mr. Greenberg was admitted yesterday because of chest pain. OBJECTIVE: Vitals: Current vitals show blood pressure is 132/72, pulse of 71, respirations 20, temperature 97.6 degrees. General: Mr. Greenberg is a 53-year-old gentleman. He is in bed in no distress. HEENT: Mucosa is pink and moist. Anicteric. Acyanotic. Neck: Supple. Chest: Good air entry bilaterally. There was no crepitations, no rhonchi. There is an old sternotomy scar on the anterior mid chest wall. Cardiovascular: Regular rate and rhythm. No murmurs, no rubs, no gallops. Abdomen: Soft, nontender. Bowel sounds present. Extremities: No pedal edema. STONER HAND: The patient awake, alert and oriented. He follows commands. DIAGNOSTIC DATA: None from today. Yesterday, labs have been reviewed. Troponins have been done x2 and negative. A chest x-ray yesterday showed apparent COPD. EKG showed normal sinus rhythm, no acute ST-segment or T-wave abnormality changes. ASSESSMENT AND PLAN: 1. Chest pain in a patient with significant coronary artery disease. So far, EKGs have been unremarkable as well as troponin x2. We are going to continue to trend this. The patient has been evaluated by Cardiology. There is a plan for an echo and a repeat EKG in the morning. If that is normal, the patient could potentially be discharged and do outpatient stress test as per Dr. Alfred. 2. History of coronary artery disease, status post CABG. We will continue with home medications. 3. Bipolar disorder. We will continue with his home medications. 4. History of lumbar stenosis, with sciatic radiculopathy noted. 5. Hypertension and dyslipidemia, controlled. cc: Ryan Helton MD
--- NOTE | 2018-11-22 14:31 | CARDIOLOGY CONSULTATION ---
DATE: 11/22/2018 CHIEF COMPLAINT: Chest pain. HISTORY: Mr. Georges is a 53-year-old male who presented to the emergency room last night at about 8:30 p.m. or so with complaints of sudden onset of chest discomfort. The patient states that about 6 p.m. he was just sitting on a lounge chair watching TV, and then he felt an odd sensation on the left anterior chest. Initially, mild discomfort and then a squeezing sensation that kept on getting worse and he got worried about it. This did not seem to radiate anywhere. It was not associated with dyspnea or diaphoresis or nausea. Upon arrival to the ER, they did a 12 lead EKG that showed no acute changes. The chest x-ray showed evidence of COPD. Some granuloma noted in the right upper lobe that had not changed. Troponin levels were checked a total of twice at 8:55 p.m. and then at 4:40 a.m. today, they were normal. CPKs were normal. ProBNP is normal. BUN and creatinine normal. The patient has been admitted for observation. He is feeling better. No more chest pain. PAST HISTORY: Very extensive. He has had a number of acute coronary syndromes leading to coronary interventions back in 2005 and then in 2007. About 2 years ago, the patient presented to the hospital with an acute coronary syndrome and back then a heart catheterization was performed on November 2016 that showed severe multivessel coronary artery disease. Following that, he was sent to [facility] and he underwent a quadruple coronary bypass procedure under Dr. Williams Black on 12/06/2016. The procedure included a mammary graft to LAD and vein graft to a diagonal 1, vein graft to marginal 1 and vein graft to the posterior descending branch of the right coronary artery. Since then, the patient has been doing well. He saw Dr. Robles on follow-up on 12/10/2017, and that at that time, he only reported having some palpitations. The patient says that for the past couple weeks, he had noted some slight burning sensation in the left anterior chest, lasting less than 5 minutes and happening perhaps 3 or 4 even up to 5 times with a frequency of every other day or every 3rd day. That has not been precipitated by exercise, effort or emotional distress. It has been randomly occurring. That is the only change that he has been noted. History positive for hyperlipidemia. He has history of hypertension, anxiety and depression. He has been diagnosed with bipolar disorder. SURGICAL HISTORY: Besides his open heart he has had resection of half of his thyroid gland for goiter. He has had inguinal hernia repair, tonsillectomy and rhumb surgery. SOCIAL HISTORY: He is single. Never been . He has no children. 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 He has been doing that for the past 12 years. He is not a smoker. He quit smoking about 2 years ago. He does not drink alcohol. He is obese with a body mass index of 32.5. . HOME MEDICATIONS: At the time of this admission: 1. Abilify 2 mg daily. 2. Aspirin 325 mg daily. 3. Wellbutrin 200 twice a day. 4. Diazepam 2 mg twice a day. 5. Zetia 10 mg at bedtime. 6. Lisinopril 20 mg daily. 7. Metoprolol 50 mg twice a day. 8. Risperidone 1 mg at bedtime. 9. Crestor 20 mg at bedtime. 10. Zoloft 50 mg at bedtime. ALLERGIES: Prozac, penicillin, and Compazine. REVIEW OF SYSTEMS: He has been basically quite active over the course of the past couple of years since his open-heart surgery. He went to cardiac rehab without difficulty. He really has no complaints outside of what I have this described. Multiple systems including pulmonary, cardiovascular, gastrointestinal, genitourinary, musculoskeletal, neurological, psychiatric, ENT, skin, hematological, history of cancers, etc, etc negative. PHYSICAL EXAMINATION: Vital signs: Blood pressure 132/72, temperature 97.6 degrees, pulse 71, respirations 20. Awake, alert, in no distress. HEENT: Unremarkable. Chest: Clear to percussion. Heart: Sounds regular rhythmic. No gallop or murmur. His has a sternotomy wound that is well healed. There is no abnormal motion of the sternum. Abdomen: Nontender. No hepatomegaly. Extremities: Showed good pulses. No peripheral edema. Neurological: Cranial nerves normal. He is alert, oriented x3. His strength is equal in both upper and lower extremities. LABORATORY DATE: Hemoglobin 14.7, platelet count 204,000. PT, PTT normal. Sodium 139, potassium 4.1, BUN 16, creatinine 1.2. IMPRESSION: 1. Patient presented with chest pain that is somewhat atypical and different than the pain that he experienced before his acute coronary syndrome 2 years ago and also the initial ones 10 and 12 years ago. This may be musculoskeletal in nature or have some other etiologies. 2. History of severe coronary heart disease, status post quadruple coronary bypass surgery 2017. 3. History of hyperlipidemia. 4. History of hypertension. 5. History of bipolar disorder. 6. Ex smoker. RECOMMENDATION: At this time, we will continue to trend his cardiac enzymes. We will check an EKG in the morning tomorrow. We will do an echocardiogram. If everything is negative I think the patient may be discharged home with instructions to return for outpatient stress testing and follow up with Dr. Robles who is his established child care provider. Thank you for asking us to participate in his evaluation. cc: Sam Alfred MD MTD
[2018-11-22] MEDS: ABILIFY PO SCH (14:53)
--- NOTE | 2018-11-22 18:19 | ECHO REPORT ---
ORDER DATE: 11/22/2018 INDICATION: Chest pain, previous coronary artery bypass surgery. M-MODE MEASUREMENTS: Left ventricle end diastole: 3.8. Left ventricle end systole: 2.6. Posterior wall: 0.9. Interventricular septum: 0.9. Left atrium: 4.0. Aortic diameter: 3.6. SUMMARY OF 2-DIMENSIONAL IMAGIN. The study is somewhat difficult. 2. Left ventricular systolic function is excellent. Ejection fraction is estimated at 65%. There is no wall motion abnormality noted. 3. The right ventricle appears to be normal. 4. The aortic valve appears to be grossly normal. Color flow mapping unremarkable. 5. The mitral valve looks grossly normal. Color flow mapping unremarkable. 6. Pulsed wave Doppler of mitral inflow shows reversal of the E/A ratio. The ratio is 0.6. 7. Tissue Doppler of septal and lateral mitral annulus averages 14 cm. 8. There is no diastolic dysfunction. 9. The tricuspid valve is normal. Color flow mapping unremarkable. Pulmonary pressure appears to be normal. 10.The pulmonic valve was suboptimally visualized. 11.There no pericardial effusion, no mass, and no thrombus. 12.The right-sided chambers are not dilated. 13.The left atrium is at the upper limits of normal. Clinical correlation recommended. cc: Sam Alfred MD
[2018-11-22] MEDS ORDERED: RISPERDAL PO SCH (21:00)
[2018-11-22] MEDS ORDERED: ZOLOFT PO SCH (21:00)
[2018-11-22] MEDS ORDERED: ZETIA PO SCH (21:00)
[2018-11-22] MEDS ORDERED: CRESTOR PO SCH (21:00)
[2018-11-23] MEDS: PRILOSEC PO SCH (06:19)
[2018-11-23 07:26] LABS: BASO# 0.02 X1000 (0.0-0.2); BASO% 0.2 % (0.0-0.8); EOS# 0.15 X1000 (0.0-0.7); EOS% 1.8 % (0.0-10.0); HEMATOCRIT 43.7 % (42.0-52.0); HEMOGLOBIN 14.9 g/dL (14.0-18.0); LYMPH# 2.39 X1000 (1.2-3.4); MCH 31.2 PG (27-31); MCHC 34.1 g/dL (33-37); MCV 91.6 FL (81-99); MONO% 9.4 % (1.7-9.3); MPV 9.4 FL (7.4-10.4); NEUT# 5.18 X1000 (1.4-6.5); NEUT% 60.6 % (42.2-75.2); PLT 183 X1000 (130-400); RBC 4.77 XMIL (4.7-6.1); RDW 12.7 % (11.5-14.5); WBC 8.54 X1000 (4.8-10.8)
[2018-11-23 07:53] LABS: CHOLESTEROL 154 mg/dL (0-200); HDL 35 mg/dL (35-55); LDL 89 mg/dL; TRIGLYCERIDES 152 mg/dL (39-160); VLDL 30 mg/dL
[2018-11-23] MEDS: LOPRESSOR PO SCH (09:17)
[2018-11-23] MEDS: ABILIFY PO SCH (09:17)
[2018-11-23] MEDS: VALIUM PO SCH (09:17)
[2018-11-23] MEDS: WELLBUTRIN SR PO SCH (09:17)
[2018-11-23] MEDS: PRINIVIL PO SCH (09:17)
[2018-11-23] MEDS: ASPIRIN PO SCH (09:17)
[2018-11-23 13:05] VITALS: BP 109/67
--- NOTE | 2018-11-23 13:30 | CONSULTATION ---
DATE OF CONSULTATION: 11/23/2018 CHIEF COMPLAINT: Chest pain. SUBJECTIVE: Mr. Greenberg is feeling fine today. He is not having any more chest pain. OBJECTIVE: Vital Signs: Blood pressure is 109/67, temperature 98.3 degrees, pulse 60, respirations 20. General: He is awake, alert, oriented, in no distress. HEENT: Unremarkable. Chest: Clear to auscultation and percussion. Heart: Sounds regular and rhythmic. No gallop or murmur. Abdomen: Nontender. Extremities: Showed no edema. Neurologic: Examination nonfocal. Moves 4 extremities. Echocardiogram done yesterday showed excellent left ventricular function. No wall motion abnormalities. Blood work: Hemoglobin 14.9, hematocrit 43.7. Troponins, they have done a total of 5 troponins, all of them negative. ProBNP is normal. Lipid panel: LDL is 89, cholesterol 154, triglycerides 152, HDL 35. IMPRESSION: 1. Patient who presented with chest pain that is atypical. He has ruled out for myocardial infarction. 2. History of coronary heart disease, previous coronary intervention and previous bypass surgery. 3. Hyperlipidemia. 4. Hypertension. 5. Bipolar disorder. RECOMMENDATION: At this time, the patient is stable. I think he can be discharged and we will arrange for an outpatient stress test. Of note, his LDL cholesterol is still relatively high, so I would suggest to optimize his rosuvastatin, go up to 40 mg daily, and take it from there. We will arrange for the outpatient stress test. cc: Sam Alfred MD
--- NOTE | 2018-11-23 16:01 | DISCHARGE SUMMARY ---
ADMISSION DATE: 11/22/2018 DISCHARGE DATE: 11/23/2018 DISPOSITION: Home. FOLLOW UP: Will be with Dr. Robles. INVASIVE PROCEDURES DONE DURING THIS ADMISSION: None. CONSULTATION DURING THIS ADMISSION: Cardiology was consulted. Patient was seen by Dr. Alfred. IMAGING STUDIES: 1. Chest x-ray did reveal COPD. 2. Echocardiogram showed a normal ejection fraction of 65%. No wall motion abnormality noted. ASSESSMENT AT THE TIME OF ADMISSION: 1. Chest pain. 2. Coronary artery disease. 3. Hypertension. 4. Bipolar disorder. DIAGNOSIS AT THE TIME OF DISCHARGE: 1. Atypical chest pain with normal troponin and EKG, echocardiogram. The patient will be seen on an outpatient basis and a stress test will be done by Cardiology on an outpatient basis. 2. History of coronary artery disease status post coronary artery bypass graft. 3. Dyslipidemia. 4. Hypertension. 5. Bipolar disorder. DISCHARGE MEDICATIONS: 1. Diazepam 2 mg p.o. b.i.d. 2. Risperidone 1 mg p.o. at bedtime. 3. Metoprolol 50 mg b.i.d. 4. Abilify 2 mg p.o. daily. 5. Crestor 20 mg p.o. at bedtime. 6. Zetia 10 mg p.o. at bedtime. 7. Bupropion 200 mg b.i.d. 8. Aspirin 325 mg p.o. daily. 9. Omeprazole 20 mg p.o. daily. 10. Sertraline 50 mg p.o. at bedtime. PRESENTING COMPLAINT: Chest pain. HISTORY OF PRESENTING COMPLAINT: Mr. Greenberg is a 53-year-old male with multiple comorbidities including coronary artery disease status post CABG in the past, presented to the emergency department because of chest pain. His initial troponin and EKG were unremarkable. He was admitted to rule out any ACS. HOSPITAL COURSE: Mr. Greenberg's chest pain resolved. He was evaluated by Cardiology. An echocardiogram was ordered which was unremarkable. A troponin was trended over the course of the 24 hours which was completely normal. A repeat EKG this morning was okay. The patient was seen by Cardiology again and they recommended that the patient could be discharged and that they will follow up with him on an outpatient basis and a stress test will be done in such a setting. This morning Mr. Greenberg refers to be doing well. No more chest pain. VITAL SIGNS: Current blood pressure is 109/67, pulse of 60, respirations 20, temperature 98.3 degrees. PHYSICAL EXAMINATION: Completely unremarkable. We think he is stable for discharge. All the discharge instructions have been discussed with him and he voiced understanding. TIME SPENT FOR DISCHARGE: Thirty-five minutes. cc: Ryan Helton MD
[2018-11-23] MEDS ORDERED: CRESTOR PO SCH (21:00)
== END 2018-11-23 14:16 | disposition home or self-care (01) ==
LOC: ED 20:14 → SUATTDRO 11-22 03:17 → 3N 11-22 03:17 → INTOOBSV 11-22 03:17
PROVIDERS: ATTEND Internal Medicine
CPT/HCPCS: 71020; 71046; 80053; 80061; 82550; 83880; 84484; 85025; 85610; 85730; 93005; 93306; 94761; A9270